=== PATIENT | male | born 1950 | race Caucasian/White ===

== ENCOUNTER → 2018-01-01 | Outpatient (CLI) | payer OTHER, BC ==
--- NOTE | ~2018-01-01 | PATH ---
[facility] [address] [place] [address] PATHOLOGY RPT PROCEDURE Name: JOSE CARLOS ARAIZA Room #: REG [facility] Zhen.#: [id number] Admission: 01/01/18 Date of : 50 Discharge: Report #: [id number] Path Case #: [id number] [facility] Accession Number: [id number] . 01 Material submitted: . RT PAROTID MASS . 02 Diagnosis: Tissue designated as "right parotid mass", biopsy: - Fragments with lymphoid tissue showing occasional germinal centers and a rare benign duct (please see comment). LBQ/01/05/2018 . 02 Comment: A portion of this specimen was sent for flow cytometric analysis and it showed "no significant lymphoid immunophenotypic abnormalities detected" with a comment that non-hematolymphoid neoplasms, Hodgkin lymphoma, some large cell lymphomas and some T cell lymphomas cannot be categorically excluded by flow cytometric analysis. . Morphologically, the tissue shows fragments comprised of a few small and larger lymphocytes, occasional germinal centers suggestive of sampling of a lymph node. A rare benign duct is identified which may be suggestive of a salivary gland duct. Acinar parenchyma, or "neoplastic" tissue is not identified. While findings may be product support representative of sampling of a lymph node, please note sample is minute and may not be entirely product support representative. Clinical correlation is required. . H and E slides co-reviewed by Dr. Lauren Herrera, who concurs with my diagnosis. (IUV:db; 01/05/2018) . 02 Electronically signed: . Estefania Santillan MD, Pathologist NPI- [id number] . 01 Gross description: . A. The specimen is received in formalin, labeled "Jose Carlos Araiza and right parotid", are several hercules webb needle cores ranging from 0.2 cm up to 1.1 cm in greatest dimension and measuring 1.0 x 0.1 x 0.1 cm in aggregate, entirely submitted in A1. . Also received is an RPMI transport media tube, labeled, "Jose Carlos Araiza and right parotid". The specimen is forwarded for ancillary studies. ([facility]; 01/01/2018) [facility] . [address] [address] PATHOLOGY RPT PROCEDURE Name: JOSE CARLOS ARAIZA Room #: REG CLAlbin Garg#: [id number] Admission: 01/01/18 Date of : 50 Discharge: Report #: [id number] Path Case #: [id number] Microscopic: . Special studies report received from [facility], [address] [place] [address], [address], [place], [address], on case [id number], labeled with their number [id number], dated 01/02/2018. . Flow Cytometry: Hematologic Neoplasia Assessment . Clinical History Right Parotid Mass . Indication for Study Evaluation for hematolymphoid neoplasia . Specimen Right Parotid Mass . Viability 81% (7AAD exclusion) . Interpretation Right Parotid Mass: - No significant lymphoid immunophenotypic abnormalities detected (see comment). . Comments Non-hematolymphoid neoplasms, Hodgkin lymphoma, some large cell lymphomas and some T-cell lymphomas cannot be categorically excluded by flow cytometric analysis. Correlation with available clinical, laboratory, and morphologic data is recommended. . Populations Analyzed Lymphocytes: 73% B-cells: 20.1%, polytypic/polyclonal sIg light chain pattern T-cells: no significant abnormalities of the markers tested CD4:CD8: 6.7 NK cells: 0.9% . Granulocytes: 1% Present . CD45 Negative 26% No significant reactivity with the markers tested Events/Debris: (may represent non-hematolymphoid cells, degenerated cells, debris, unlysed red blood cells, etc.) . Morphologic Evaluation A slide was reviewed for corporate quality assurance manager purposes only. . Specimen Description [address] [address] PATHOLOGY RPT PROCEDURE Name: JOSE CARLOS ARAIZA Room #: REG CL Britany#: [id number] Admission: 01/01/18 Date of : 50 Discharge: Report #: [id number] Path Case #: [id number] Cell Yield: 2.49x10 6 . Reagent(s) Used CD2, CD3, CD4, CD5, CD7, CD8, CD10, CD11b, CD19, CD20, CD23, CD30, CD38, CD43, CD45, CD56, CD57, FMC-7, HLA-DR, kappa, lambda . Electronically Signed by Nathan Mayen MD at 10:05AM [facility] on 01/02/2018 at [facility]. Nathan Mayen MD Pathologist . Intended Use Flow cytometry is optimally used to immunophenotypically characterize abnormal populations when they are detected. Negative flow cytometry results do not exclude lymphoma or neoplasia. Possible false negative flow cytometry results may occur in, but are not limited to, the following: neoplastic cells in Hodgkin lymphoma are not typically adequately represented by routine clinical flow cytometry; neoplastic cells may be lost or inadequately represented due to degeneration, sample processing, sampling artifact, or patchy involvement; plasma cells are typically underrepresented by flow cytometry; immature cells/blasts may be underrepresented due to hemodilution; myeloproliferative disorders and low grade myelodysplasia may not have immunophenotypic abnormalities or increased blasts. Correlation with all available clinical, laboratory, and morphologic data is always necessary to assess for the possibility of false negative flow cytometry results and to establish a diagnosis. . Each marker in this analysis was used to assess for potential antigenic abnormalities or to evaluate detected abnormalities. . Disclaimer(s) This test was performed at [employer]. at [address] [place] [address], [id number] - Aircraft Quality Control Inspector: Tripp Oconnor MD. [employer] is a business unit of [employer] a wholly-owned subsidiary of [employer]. . Any image or images that accompany this report are product support representative images only and should not be used to render a diagnosis. . This test was developed and its performance characteristics determined by [employer]. It has not been cleared or approved by the Food and Drug Administration (FDA). The FDA has determined that such clearance or approval is not necessary. . For inquiries, the physician may contact Lab: [phone] [address] PATHOLOGY RPT PROCEDURE Name: JOSE CARLOS ARAIZA Room #: REG [facility].#: [id number] Admission: 01/01/18 Date of : 50 Discharge: Report #: [id number] Path Case #: [id number] A complete copy of the report is on file. . Professional services performed by [employer] at [address], [place] [address]. Technical services performed by [employer] at [address], [place] [address]. . ([facility] 01/02/2018) . . 02 CPT . [id number] Performed at: [address] [facility] [id number] [facility] [address], [place] [id number] MD Elder Vang MD Phone: [phone] Performed at: [address] [id number] MD Estefania Santillan MD Phone: [phone]
== END | disposition home or self-care (01) ==
LOC: ULTRA 06:11
DX: D11.0 Benign neoplasm of parotid gland (principal); I10 Essential (primary) hypertension; Z79.899 Other long term (current) drug therapy

== ENCOUNTER → 2019-12-21 | Outpatient (CLI) | payer OTHER, BC ==
[~2019-12-21] VITALS: Ht 177.8 cm; Wt 111.1 kg
[~2019-12-21] MED LIST: CO Q-10300 MG PO; KRILL OIL500 MG PO; LISINOPRIL-HCT1 EAC2 PO; MELOXICAM15 MG PO; MULTIVITAMINS1 EAC7 PO; SPIRONOLACTONE50 MG PO; TIZANIDINE HCL 22 M1 PO; VITAMIN D3 PO
--- NOTE | ~2019-12-21 | HPC ---
[facility] [address] [place] [address] PAIN MANAGEMENT CONSULTATION Name: JOSÉ MIGUEL MITCHELL Room #: REG SOHA Britany#: [id number] Admission: 12/21/19 Attend Phys: Osbaldo Wylie DO Discharge: Date of : 50 Report #: [id number] THIS REPORT FOR: cc: Rian Cage,Osbaldo Lin DO ~ CC: Rian Marx DATE OF SERVICE: 12/21/2019 CHIEF COMPLAINT: Low back pain, right lower extremity pain and paresthesias. HISTORY OF PRESENT ILLNESS: As you know, the patient is a 69-year-old male who reports acute onset of low back pain, right lower extremity pain which began 10/03/2019. The patient indicates pain began without inciting injury or trauma. He has seen Orthopedics in regards to possible greater trochanteric bursitis. He has undergone 2 injections with no benefit. It was discussed at that time that his symptoms may be related to his lumbar spine given the lack of efficacy with the injections in the right greater trochanteric area. The patient sought evaluation through his primary care physician who ultimately sent the patient to our clinic to discuss options for treatment including the possibility of undergoing a lumbar epidural injection to address suspected lumbar radiculopathy. The patient did have MRI of lumbar spine, which showed changes that might be contributing to the symptoms the patient is experiencing. He has been trialled with conservative medical therapy and the injections of the greater trochanter without improvement. The patient reports today pain is periodic and intermittent. He describes the pain as throbbing and sharp. He places current pain score 1/10, daily average of 5/10, worst pain has been is 8/10. The patient is unable to determine what might make his pain worse nor can he determine what has made his pain better. He has been referred to our service to discuss treatment options for suspected lumbar radiculopathy. PAST MEDICAL HISTORY: 1. Hypertension. 2. Idiopathic peripheral neuropathy. 3. Benign nevi. 4. Chronic asthma. 5. Osteoarthritis. 6. Cervical myelopathy. 7. Tubular adenoma of the colon. 8. Seborrheic keratosis. 9. Venous insufficiency. [facility] [address] [place] [address] PAIN MANAGEMENT CONSULTATION Name: JOSÉ MIGUEL MITCHELL Room #: REG [facility].#: [id number] Admission: 12/21/19 Attend Phys: Osbaldo Wylie DO Discharge: Date of : 50 Report #: [id number] 10. Chronic cervicalgia. 11. Obstructive sleep apnea. 12. Chronic lumbar radiculopathy. PAST SURGICAL HISTORY: 1. Cervical spine surgery. 2. Parotidectomy. SOCIAL HISTORY: The patient reports he is a nonsmoker. He denies IV or illicit drug use. Denies any chronic alcohol use. 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 He is working, not receiving workmen's compensation nor is he trying to obtain discrete benefits. He is unaccompanied at today's visit. REVIEW OF SYSTEMS: Positive for wearing corrective eyewear, nocturia, varicose veins, low back pain, right lower extremity pain, peripheral neuropathy. All other review of systems negative per 12-point review of systems other than those listed in history of present illness. Pain impact score 16/70 indicating mild interference of daily activities secondary to pain. PQRS: The patient has known arthritic changes of the cervical spine, right ankle and lumbar spine. No rheumatoid arthritis. He is placing current pain score 5/10. He is a fall risk, but has not had a fall in last 3 months. He is utilizing a cane for ambulation. He does not take blood thinner. He is treated for hypertension. He is not on chronic opioids and has a low opiate addiction potential based on our assessment tool. Pain impact 16/70 indicating mild interference of daily activities secondary to pain. ALLERGIES: NO KNOWN DRUG ALLERGIES. CURRENT MEDICATIONS: Lisinopril/hydrochlorothiazide 20/25 mg once a day, spironolactone 50 mg per day, meloxicam 15 mg per day, tizanidine 2 mg t.i.d., multivitamin 1 tab per day, Coenzyme Q10 300 mg once a day, vitamin D3 5000 units per day, Krill oil 500 mg per day. IMAGING: MRI of the lumbar spine obtained 03/03/2018 shows mild left lateral recess narrowing, severe neural foraminal narrowing at multiple levels. PHYSICAL EXAMINATION: VITAL SIGNS: Blood pressure 122/63, pulse 73, respiratory rate 20 and unlabored. The patient is 99% on room air. Height 5 feet 10 inches tall, weight 245 pounds, BMI calculated 35.2. GENERAL: Well-developed, well-nourished, well-hydrated exogenously obese 69-year-old male. He appears his stated age, pain is rated today at a level of 5/10. [facility] [address] [place] [address] PAIN MANAGEMENT CONSULTATION Name: JOSÉ MIGUEL MITCHELL Room #: REG SOHA Garg#: [id number] Admission: 12/21/19 Attend Phys: Osbaldo Wylie DO Discharge: Date of : 50 Report #: [id number] HEENT: Normocephalic, atraumatic. Pupils equal, round, reactive to light. Extraocular muscles are intact. Sclerae nonicteric without injection. NEUROLOGIC: Cranial nerves 2-12 grossly intact. Speech is fluent. The patient deemed a good historian. LUNGS: Clear, no wheezes, rhonchi or rales. CARDIOVASCULAR: Regular. No appreciable gallop, no rub. ABDOMEN: Soft, mildly obese, normoactive bowel sounds. EXTREMITIES: Show no clubbing, no cyanosis, and no edema. MUSCULOSKELETAL: Lower extremity strength appears symmetrical 5/5, intact to light touch from L1 through S2 dermatomes. Seated straight leg raising negative. Supine straight leg raising is positive on the right. Daniela's test is negative. Modified Gaenslen's positive for axial low back pain. Ankle clonus negative. Babinski is negative. Muscle bulk and tone is symmetrical in comparing left lower extremity to right. Gait is mildly antalgic favoring right lower extremity over left. Lumbar provocation testing is met with increased pain with right lateral flexion and rotation to the right and extension of the lumbar spine. ASSESSMENT: 1. Symptomatic lumbar radiculopathy. 2. Severe neural foraminal stenosis of lumbar spine. 3. Lateral recess stenosis of lumbar spine. 4. Displacement of lumbar intervertebral disk with radiculopathy. 5. Lumbosacral spondylosis with radiculopathy. 6. Facet arthropathy of the lumbar spine. 7. Chronic intractable pain. PLAN: 1. Based on today's physical exam and history the patient has provided, the description the patient uses in regards to pain as well as location of symptoms, it would appear the patient is suffering from foraminal stenotic pain radiating down the right leg consistent with lumbar radiculopathy. The patient has had injections in the greater trochanter to rule out the trochanteric bursitis as a source of symptoms. This has been ruled out as the patient received no benefit with these procedures, thus indicating another source of pain. He was subsequently referred to our clinic to discuss treatment options for suspected lumbar radiculopathy. We reviewed the patient's MRI and there is marked facet changes and foraminal stenosis that would likely contribute to the patient's symptoms. We discussed the following treatment options with the patient today. We discussed physical therapy, stretching exercises and a concerted effort at weight loss as a treatment course. We discussed suggestions in medication management utilizing neuropathic pain medication such as nortriptyline, amitriptyline, Cymbalta, Lyrica or gabapentin. We also discussed lumbar epidural injections under fluoroscopic guidance to address lumbar radicular symptoms quickly. We also discussed spinal cord stimulator and ultimately [address] [address] PAIN MANAGEMENT CONSULTATION Name: JOSÉ MIGUEL MITCHELL Kavitha Room #: REG CLI VeroniqueVeronique#: [id number] Admission: 12/21/19 Attend Phys: Osbaldo Wylie DO Discharge: Date of : 50 Report #: [id number] surgical options. After reviewing the risks and benefits of all the proposed treatment options, the patient chose to undergo lumbar epidural injection under fluoroscopic guidance. 2. The patient was advised risks and benefits of a lumbar epidural injection. These risks include but are not necessarily limited to bleeding, bruising, infection, worsening pain, no relief of pain, also risk of temporary or permanent muscle weakness, temporary or permanent nerve damage, possible paralysis and . The patient states understood and wished to proceed. 3. No medication changes made at today's visit. The patient will continue current medical therapy as previously prescribed. 4. We will see the patient back in followup visit in approximately one month. At that time, review the efficacy of today's epidural injection and determine if next in the series of epidural injections might be recommended. We are hopeful the patient will see good and prolonged benefit with the procedure provided today. 5. We wish to thank Dr. Cage for the referral of the patient to our clinic. We will keep you apprised of his response to treatment as we address lumbar radiculopathy. Again, we wish to thank you for the opportunity to see the patient in consultation. PROCEDURE NOTE DESCRIPTION OF PROCEDURE: Lumbar epidural steroid injection under fluoroscopic guidance. This is the first procedure of the first series that the patient is undergoing. After obtaining written consent, the patient was taken back to the fluoroscopy suite, placed in a prone position with pillow under the abdomen to decrease lumbar lordosis. The skin overlying the lumbosacral area was then prepped and draped in aseptic fashion. The lumbar vertebral interspace was then identified by AP fluoroscopy. The skin and subcutaneous tissue overlying the target site of injection was anesthetized with 3 mL 1% lidocaine. A 20-gauge 3.5 inch Tuohy needle was then advanced under fluoroscopic guidance towards the epidural space using a right paramedian approach. The epidural space was identified using loss of resistance to air technique. After negative aspiration for heme or cerebrospinal fluid, a total of 1 mL of Omnipaque was injected. A lumbar epidurogram was confirmed using both AP and lateral fluoroscopy. After negative aspiration for heme or cerebrospinal fluid, 5 mL of a solution containing 2 mL 40 mg/mL 80 mg total triamcinolone along with 3 mL of lidocaine 1% was injected in increments. Contrast spread was noted post epidural space. The needle was then retracted approximately half way and needle tract flushed with 1 mL of 1% lidocaine. Needle was then removed. There were no apparent sensory or motor deficits in the lower extremity following the procedure. A sterile bandage was placed over the injection site. The heart rate, pulse, oximetry and blood pressure were continuously monitored after the procedure. There were no apparent complications. The patient [facility] [address] [place] [address] PAIN MANAGEMENT CONSULTATION Name: JOSÉ MIGUEL MITCHELL Kavitha Room #: REG CLI Claudia#: [id number] Admission: 12/21/19 Attend Phys: Osbaldo Wylie DO Discharge: Date of : 50 Report #: [id number] tolerated the procedure well and was carefully escorted to the recovery room in stable condition. There were no apparent complications. After meeting discharge criteria, the patient was then discharged home. By: 1531 [id number] Osbaldo Wylie DO /nt
[2019-12-21 14:38] VITALS: BP 122/63
--- NOTE | 2019-12-21 15:00 | NUR ---
Pain Clinic Assessment: 1. History of Osteoarthritis: CERVICAL SPINE RIGHT ANKLE LUMBAR SPINE History of Rheumatoid Arthritis: 2. Height: 5 ft. 10 in. 177.8 cm. Weight: 245.0 lb. oz. 111.132 kg. Patient's BMI: 35.2 3. Vital Signs: BP: 122/63 Pulse: 73 Resp: 20 Temp: 02 Sat: 99 ECG Mon: 4. Pain Intensity: 5 5. Fall Risk: Dizziness: N Needs help standing or walking: Y Fallen in the last 3 months: N Fall risk comments: 6. Patient on Blood Thinner: None 7. History of Hypertension: N 8. Opioid Therapy greater than 6 weeks: N Opiate Contract Signed: 9. Risk Assessment Tool Provided: 0-LOW RISK 10. Functional Assessment Tool: 11. Recreational Drug Use: Never Drug Type: Tobacco Use: Never Smoker Tobacco Type: Amount or Packs/day: How Many Years: Alcohol Use: No Frequency: Quant:
== END | disposition home or self-care (01) ==
LOC: PAIN 06:56
DX: M51.16 Intervertebral disc disorders with radiculopathy, lumbar region (principal); M47.27 Other spondylosis with radiculopathy, lumbosacral region; M47.26 Other spondylosis with radiculopathy, lumbar region; M48.061 Spinal stenosis, lumbar region without neurogenic claudication; G89.29 Other chronic pain; I10 Essential (primary) hypertension; J45.998 Other asthma; G47.33 Obstructive sleep apnea (adult) (pediatric); E66.09 Other obesity due to excess calories; Z98.890 Other specified postprocedural states; Z79.899 Other long term (current) drug therapy

== ENCOUNTER → 2020-01-11 | Outpatient (CLI) | payer OTHER, BC ==
[~2020-01-11] VITALS: Ht 177.8 cm; Wt 105.8 kg
[~2020-01-11] MED LIST changes: +CALCIUM + D SO1 EACH PO; +NEURONTIN300 MG PO; +TURMERIC 500 M1 EACH PO; +ZYRTEC10 M5 PO
--- NOTE | ~2020-01-11 | HPC ---
[address] [address] [place] [address] PAIN MANAGEMENT CONSULTATION Name: JOSÉ MIGUEL MITCHELL Room #: REG SOHA VeroniqueVeronique#: [id number] Admission: 01/11/20 Attend Phys: Osbaldo Wylie DO Discharge: Date of : 50 Report #: [id number] THIS REPORT FOR: cc: Rian Cage,Osbaldo Lin DO ~ CC: Rian Marx DATE OF SERVICE: 01/11/2020 REFERRING PHYSICIAN: Rian Cage DO CHIEF COMPLAINT: Low back pain, right lower extremity pain and paresthesias. HISTORY OF PRESENT ILLNESS: As you know, the patient is a 69-year-old male who returns today in followup visit, reporting pain score 4/10. We saw the patient in consultation 12/21/2019 where he underwent a lumbar epidural injection under fluoroscopic guidance to address lumbar radicular pain. He has noted an improvement in symptoms of 80% that is ongoing. He returns today in followup visit to discuss treatment options to address residual pain. He denies new injury or trauma that may have led to symptom continuation. ALLERGIES: No known drug allergies. CURRENT MEDICATIONS: Lisinopril/hydrochlorothiazide 20/25 once a day, spironolactone 25 mg once a day, meloxicam 15 mg once a day, tizanidine 2 mg t.i.d., multivitamin 1 tab per day, Coenzyme Q10 300 mg once a day, vitamin D3 5000 units per day, Krill oil 500 mg per day. SOCIAL HISTORY: The patient denies smoking. He denies IV or illicit drug use. Denies any chronic alcohol use. 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 He is working now, receiving workmen's compensation, unaccompanied today. IMAGING: No new imaging available. PQRS: The patient has known arthritic changes of the cervical spine, right ankle and lumbar spine. No rheumatoid arthritis. He is placing pain intensity no greater than 4/10. He is not a fall risk, has not had a fall in last 3 months. He is not on blood thinners, but is treated for hypertension. He is not on chronic opioids, has a low opioid addiction potential. Pain impact score today of 19/70 indicating mild interference of daily activities secondary to pain. PHYSICAL EXAMINATION: [facility] [address] [place] [address] PAIN MANAGEMENT CONSULTATION Name: STEPHENJOSÉ MIGUEL Plummer [facility] #: [facility] [id number] Admission: 01/11/20 Attend Phys: Osbaldo Wylie DO Discharge: Date of : 50 Report #: [id number] VITAL SIGNS: Blood pressure 119/60, pulse 87, respiratory rate 18 and unlabored. The patient is 94% on room air. Height 5 feet 10 inches tall, weight 233.2 pounds, BMI calculated 33.5. GENERAL: Well-developed, well-nourished, well-hydrated exogenously obese 69-year-old male. He appears his stated age. Pain is rated today at no greater than 4/10. HEENT: Normocephalic, atraumatic. Pupils are equal, round, and reactive. EXTREMITIES: Show no clubbing, no cyanosis, no edema. MUSCULOSKELETAL: Lower extremity strength is symmetrical 5/5, intact to light touch from L1 through S2 dermatomes. Seated straight leg raising negative. Supine straight leg raising positive on the right. Gait appears mildly antalgic favoring right lower extremity over left. Muscle bulk and tone is symmetrical when comparing lower extremities. ASSESSMENT: 1. Symptomatic lumbar radiculopathy. 2. Severe neural foraminal stenosis of lumbar spine. 3. Lateral recess stenosis of lumbar spine. 4. Displacement of lumbar intervertebral disk with radiculopathy. 5. Lumbosacral spondylosis with radiculopathy. 6. Facet arthropathy of the lumbar spine. 7. Chronic intractable pain. PLAN: 1. The patient has returned today in followup visit reporting on his epidural injection he reports an 80% improvement in overall pain that is ongoing. He is pleased with response to this injection. He returns to discuss the residual pain he is experiencing for which he places pain score no greater than 4/10. The patient and I discussed at length the other treatment options we have available including repeating epidural injection. We discussed physical therapy, stretching exercises, core strengthening and a concerted effort at weight loss as a way to treat symptoms. We discussed medication management, making adjustments in therapy, utilizing neuropathic pain medications for pain control. We discussed epidural injection as a treatment option. We also discussed surgical options of decompression of the area of his symptoms. After reviewing the risks and benefits of all the proposed treatment options, the patient chose to make adjustments in medication management. 2. The patient will start on gabapentin 300 mg dose. We will start with 1 tab p.o. at bedtime, continue for 3 nights, increase to 2 tabs p.o. at bedtime for 3 nights. If no improvement in symptoms, no side effects, then increase to 300 mg in morning and 600 mg at night for 3 nights. If no improvement in symptoms, no side effects of sleepiness, disorientation, confusion or mental slowing, then continue the titration every 3 days to reach a dosing of 600 mg in the morning, 600 mg at noon and 600 mg at night. The patient was advised during this titration if he notes improvement in symptoms, stabilize at that dose, no further escalation. No improvement in symptoms, no side effects, continue the [facility] [address] [place] [address] PAIN MANAGEMENT CONSULTATION Name: JOSÉ MIGUEL MITCHELL Room #: REG SOHA Britany#: [id number] Admission: 01/11/20 Attend Phys: Osbaldo Wylie DO Discharge: Date of : 50 Report #: [id number] titration as directed. The patient was given a prescription of #180 tablets of the 300 mg dose. The patient was advised if he notes side effects to contact our clinic after he reduces his dose so that we can help adjust his therapy further. 3. We will see the patient back in followup visit for continuation of medication management and discuss the possibility of undergoing next in the series of epidural injections. The patient was given information in regard to the side effects of gabapentin to watch for. He will contact our clinic with any questions or concerns. We will see him back in followup visit for medication management on an as needed basis. He can return at any time for the next in the series of epidural injections. By: [id number] Osbaldo Wylie DO /nt
[2020-01-11 10:14] VITALS: BP 119/60
--- NOTE | 2020-01-11 10:24 | NUR ---
Pain Clinic Assessment: 1. History of Osteoarthritis: CERVICAL SPINE RIGHT ANKLE LUMBAR SPINE History of Rheumatoid Arthritis: 2. Height: 5 ft. 10 in. 177.8 cm. Weight: 233.2 lb. oz. 105.779 kg. Patient's BMI: 33.5 3. Vital Signs: BP: 119/60 Pulse: 87 Resp: 18 Temp: 02 Sat: 94 ECG Mon: 4. Pain Intensity: 4 5. Fall Risk: Dizziness: N Needs help standing or walking: N Fallen in the last 3 months: N Fall risk comments: 6. Patient on Blood Thinner: None 7. History of Hypertension: Y 8. Opioid Therapy greater than 6 weeks: N Opiate Contract Signed: 9. Risk Assessment Tool Provided: 0-LOW RISK 10. Functional Assessment Tool: 11. Recreational Drug Use: Never Drug Type: Tobacco Use: Never Smoker Tobacco Type: Amount or Packs/day: How Many Years: Alcohol Use: No Frequency: Quant:
== END ==
LOC: PAIN 06:50
PROVIDERS: ATTEND Anesthesiology Pain Medicine
DX: M47.27 Other spondylosis with radiculopathy, lumbosacral region (principal); M79.604 Pain in right leg; R20.2 Paresthesia of skin; M51.27 Other intervertebral disc displacement, lumbosacral region; M48.061 Spinal stenosis, lumbar region without neurogenic claudication; G89.29 Other chronic pain; Z79.899 Other long term (current) drug therapy